=== PATIENT | male | born 1980 | race Two or more races ===

== ENCOUNTER 2016-12-04 18:24 | Emergency (ER) | payer MEDICAID, OTHER ==
[~2016-12-04] VITALS: Ht 185.4 cm; Wt 81.6 kg
[2016-12-04 18:37] VITALS: BP 138/92
[2016-12-04 21:14] LABS: Basophils # (auto) 0 uL; Basophils % (auto) 0.3 % (0.0-2.0); Eosinophils # (auto) 0.2 uL; Eosinophils % (auto) 1.5 % (0.0-7.0); Hematocrit 41.2 % (41.0-53.0); Hemoglobin 13.9 g/dL (13.5-17.5); Lymphocytes % (auto) 21.7 % (10.0-50.0); Mean Corpuscular Hemoglobin 29.5 pg (28.0-32.0); Mean Corpuscular Hgb Conc. 33.6 g/dL (32.0-36.0); Mean Corpuscular Volume 87.8 fL (80.0-100.0); Mean Platelet Volume 8.7 fL (7.4-10.4); Monocytes # (auto) 0.7 uL; Neutrophils # (auto) 9.8 uL; Neutrophils % (auto) 71.5 % (37.0-80.0); Platelet Count (auto) 313 10^3/uL (140-450); Red Cell Distribution Width 13.4 % (11.6-16.0); White Blood Cell 13.7 10^3/uL (4.4-10.8)
[2016-12-04 21:30] LABS: Albumin 3.3 g/dL (3.4-5.0); BUN/Creatinine Ratio 13.4; Bilirubin, Total 0.4 mg/dL (0.2-1.0); Calcium 8.4 mg/dL (8.5-10.1); Potassium 3.5 mmol/L (3.5-5.1)
[2016-12-04] MEDS ORDERED: cefTRIAXone SOD 1,000 MG VL IM ONE ×2 (22:15→22:30)
[2016-12-04] MEDS ORDERED: ACETAMINOPHEN/CODEINE#3 (300/30mg) TAB PO ONE ×2 (22:15→22:30)
== END 2016-12-04 22:51 | disposition home or self-care (01) ==
LOC: ER 18:27
DX: L03.115 Cellulitis of right lower limb (principal)
CPT/HCPCS: 36415; 73560; 80053; 85025; 96372; 99285; J0696

== ENCOUNTER 2021-12-10 21:58 | Emergency (ER) | payer MEDICAID ==
[~2021-12-10] VITALS: Ht 185.4 cm; Wt 72.6 kg
[2021-12-10 22:00] VITALS: BP 151/95
[2021-12-10 22:48] LABS: Basophils # (auto) 0.2 10 ^3/uL (0-0.2); Basophils % (auto) 2.8 % (0.0-2.0); Eosinophils # (auto) 0.1 10 ^3/uL (0-0.8); Eosinophils % (auto) 1.7 % (0.0-7.0); Hematocrit 43.9 % (41.0-53.0); Hemoglobin 15.2 g/dL (13.5-17.5); Lymphocytes # (auto) 2.2 10 ^3/uL (0.4-5.4); Mean Corpuscular Hgb Conc. 34.6 g/dL (32.0-36.0); Mean Corpuscular Volume 89.5 fL (80.0-100.0); Monocytes # (auto) 0.4 10 ^3/uL (0-1.3); Monocytes % (auto) 5.9 % (0.0-12.0); Neutrophils # (auto) 3.7 10 ^3/uL (1.6-8.6); Neutrophils % (auto) 56.6 % (37.0-80.0); Red Cell Distribution Width 13.1 % (11.8-14.3); White Blood Cell 6.6 10^3/uL (4.4-10.8)
[2021-12-10 23:11] LABS: Albumin 3.5 g/dL (3.4-5.0); Calcium 8.9 mg/dL (8.5-10.1); Potassium 4.6 mmol/L (3.5-5.1)
[2021-12-10 23:14] LABS: Bilirubin, Total 0.2 mg/dL (0.2-1.0)
== END 2021-12-11 04:22 | disposition left against medical advice (07) ==
LOC: ER 21:58
DX: R25.2 Cramp and spasm (principal); J45.909 Unspecified asthma, uncomplicated; F17.210 Nicotine dependence, cigarettes, uncomplicated; R94.31 Abnormal electrocardiogram [ECG] [EKG]
CPT/HCPCS: 36415; 71045; 80053; 83880; 84484; 85025; 93005

== ENCOUNTER 2024-12-16 07:50 | Emergency (ER) | payer MEDICAID, OTHER ==
[~2024-12-16] VITALS: Ht 177.8 cm; Wt 68.6 kg
[2024-12-16 08:24] VITALS: BP 140/92; TEMP 97.7
[2024-12-16 08:28] VITALS: PULSE 97; RESP 18; O2SAT 97
[2024-12-16 09:15] LABS: Basophils # (auto) 0.1 10 ^3/uL (0-0.2); Basophils % (auto) 0.8 % (0.0-2.0); Chloride 105 mmol/L (98-107); Eosinophils # (auto) 0.3 10 ^3/uL (0-0.8); Eosinophils % (auto) 3.2 % (0.0-7.0); Hematocrit 49.7 % (41.0-53.0); Lymphocytes % (auto) 25.2 % (10.0-50.0); Mean Corpuscular Hemoglobin 30.6 pg (28.0-32.0); Mean Corpuscular Hgb Conc. 34.2 g/dL (32.0-36.0); Mean Corpuscular Volume 89.6 fL (80.0-100.0); Monocytes # (auto) 0.5 10 ^3/uL (0-1.3); Monocytes % (auto) 6.5 % (0.0-12.0); Neutrophils # (auto) 5.1 10 ^3/uL (1.6-8.6); Neutrophils % (auto) 64.3 % (37.0-80.0); Nucleated Red Blood Cells % 0.3 %; Platelet Count (auto) 267 10^3/uL (140-450); Potassium 4.1 mmol/L (3.5-5.1); Red Blood Cells 5.55 10^6/uL (4.5-5.90); Red Cell Distribution Width 12.8 % (11.8-14.3); Sodium 140 mmol/L (136-145); White Blood Cell 7.9 10^3/uL (4.4-10.8)
[2024-12-16 09:16] LABS: Anion Gap 8 (5-15); Calcium 9.2 mg/dL (8.7-10.4); Carbon Dioxide 27 mmol/L (20-31)
[2024-12-16 09:21] LABS: BUN/Creatinine Ratio 11.6 (10.0-20.0); Blood Urea Nitrogen 17 mg/dL (9-23); Glucose 94 mg/dL (74-106)
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
[2024-12-16] MEDS ORDERED: IBUP-1454 PO (09:38)
[2024-12-16] MEDS ORDERED: LIDO5DIS21 TOP (09:38)
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
--- NOTE | 2024-12-18 12:26 | ECG ---
[facility] Test Date: 2024-12-16 Test Time: 07:56:15 Pat Name: TRINA CARVAJAL Department: ED Room: Gender: M Cardiology Technologist: [place] : 1980 Requested By: DALE ELKINS Order Number: [id number] Reading MD: Gwyn Haas Measurements Intervals [place] Rate: 89 P: 57 ND: 122 QRS: 35 QRSD: 94 T: 67 QT: 385 QTc: 469 Interpretive Statements Sinus rhythm Minimal ST depression, diffuse leads Electronically Signed On 12-21-2024 11:38:31 PDT by Gwyn Haas Please click the below link to view image of tracing.
== END 2024-12-16 09:48 | disposition home or self-care (01) ==
LOC: ER 07:50 → EDBD 07:50 → ER 09:48
DX: R07.2 Precordial pain (principal); R07.89 Other chest pain; F17.210 Nicotine dependence, cigarettes, uncomplicated; J45.909 Unspecified asthma, uncomplicated; V59.9XXA Occupant (driver) (passenger) of pick-up truck or van injured in unspecified traffic accident, initial encounter; Y93.89 Activity, other specified; Y92.89 Other specified places as the place of occurrence of the external cause; Y99.8 Other external cause status
CPT/HCPCS: 36415; 71045; 71120; 80048; 84484; 85025; 93005